=== PATIENT | male | born 1975 | race Hispanic/Latino ===

== ENCOUNTER 2018-06-14 07:57 | Outpatient (CLI) | payer OTHER ==
--- NOTE | 2018-06-14 10:40 | Magnetic Resonance Report ---
MR ABDOMEN WITHOUT CONTRAST History: Evaluate for hemangioma. Technique: Multisequence, multiplanar MRI without IV contrast. Thin slice MRCP images. Radial MRCP images. Comparison: None at this facility. Findings: The liver is normal size, contour and signal. No evidence for parenchymal disease or suspicious mass. There is no obvious hemangioma of the liver although this exam is slightly limited without IV contrast. There is moderate splenomegaly measuring 17.8 x 12.8 x 5.8 cm. No focal splenic lesion. No varicosities or ascites is identified. The biliary system is within normal limits. No evidence for cholelithiasis or choledocholithiasis. The pancreas, kidneys, adrenal glands, aorta and visualized bowel loops are unremarkable. No visceral mass, adenopathy or inflammatory changes are identified. Impression: Splenomegaly. Unremarkable liver, see above.
== END 2018-06-14 07:58 | disposition home or self-care (01) ==
LOC: MRI 07:57
PROVIDERS: ATTEND Internal Medicine
DX: R16.1 Splenomegaly, not elsewhere classified (principal); B19.10 Unspecified viral hepatitis B without hepatic coma; B19.20 Unspecified viral hepatitis C without hepatic coma
CPT/HCPCS: 74181